=== PATIENT | female | born 1955 | race Two or more races ===

== ENCOUNTER → 2016-11-11 | Outpatient (CLI) | payer MEDICARE, OTHER ==
[2015-11-22 12:40] VITALS: BP 115/65
[~2016-11-11] MED LIST: CELE100C PO; CHOL500016 PO; HYDR-2758 PO; HYDR-971 PO; LEVO25TA4 PO; OXYC-323 PO
--- NOTE | 2016-11-11 11:54 | RAD ---
DATE: 11/11/2016 EXAM: DIGITAL DIAGNOSTIC BILATERAL HISTORY: Diagnostic mammogram for evaluation of lumpy breasts. History of prior cyst aspiration in the left breast. COMPARISON: Left breast ultrasound 11/22/2015, mammogram 10/20/2014, 07/03/2014 This study was interpreted with the benefit of Computerized Aided Detection (CAD). The breast parenchyma is primarily fatty replaced. Breast parenchyma level density A. FINDINGS: Bilateral CC and MLO views were performed with an additional spot CC view. No suspicious microcalcifications, masses or areas of architectural distortion are identified. Patient had prior cyst aspiration, which is not seen on current mammogram. IMPRESSION: Normal bilateral mammogram. BI-RADS CATEGORY: 1 NEGATIVE RECOMMENDED FOLLOW-UP: 12M 12 MONTH FOLLOW-UP PQRS compliance statement: Patient information was entered into a reminder system with a target due date 11/11/2017 for the next mammogram. Mammography is a sensitive method for finding small breast cancers, but it does not detect them all and is not a substitute for careful clinical examination. A negative mammogram does not negate a clinically suspicious finding and should not result in delay in biopsying a clinically suspicious abnormality. "Our facility is accredited by the [employer]ammography [employer]."
== END | disposition home or self-care (01) ==
LOC: MAMMO 09:27
PROVIDERS: ATTEND Family Medicine
DX: N63 Unspecified lump in breast (principal)
CPT/HCPCS: G0204; 77066

== ENCOUNTER 2017-04-02 08:59 | Emergency (ER) | payer MEDICARE, OTHER ==
[2017-04-02] MEDS ORDERED: BENZONATATE 100 MG CAPSULE. PO ONE (09:15)
[2017-04-02] MEDS ORDERED: methylPREDNISolone SOD SUCC PF 125 MG/2 ML VIAL. IV ONE (09:15)
[2017-04-02] MEDS ORDERED: IPRATRPIUM/ALBUTEROL 0.5/2.5MG 3 ML NEBU. NEB ONE (09:15)
--- NOTE | 2017-04-02 09:23 | PHYS DOC ---
Past Medical History Past Medical History: No Pertinent History Past Surgical History: No Surgical History Alcohol Use: Rarely Drug Use: None Adult General Chief Complaint Chief Complaint: MULTIPLE COMPLAINTS HPI HPI Patient is a 61 year old female with no significant medical history who presents today with a productive cough and nasal congestion for 2 weeks. Patient is also complaining of subjective fevers. Review of Systems Review of Systems Constitutional: Denies fever or chills [] Eyes: Denies change in visual acuity, redness, or eye pain [] HENT: Reports nasal congestion, denies sore throat [] Respiratory: Reports productive cough, denies shortness of breath [] Cardiovascular: No additional information not addressed in HPI [] GI: Denies abdominal pain, nausea, vomiting, bloody stools or diarrhea [] : Denies dysuria or hematuria [] Musculoskeletal: Denies back pain or joint pain [] Integument: Denies rash or skin lesions [] Neurologic: Denies headache, focal weakness or sensory changes [] All other systems were reviewed and found to be within normal limits, except as documented in this note. Current Medications Current Medications Current Medications Medications (Trade) Dose Ordered Sig/Morteza Start Time Stop Time Status Last Admin Dose Admin Albuterol/ Ipratropium (Duoneb) 3 ml 1X ONCE 04/02/17 09:15 04/02/17 09:22 DC 04/02/17 09:39 3 ML Benzonatate (Tessalon Perle) 100 mg 1X ONCE 04/02/17 09:15 04/02/17 09:22 DC 04/02/17 09:34 100 MG Methylprednisolone Sodium Succinate (SOLU-Medrol 125MG VIAL) 125 mg 1X ONCE 04/02/17 09:15 04/02/17 09:22 DC 04/02/17 09:34 125 MG Allergies Allergies Allergies Coded Allergies Type Severity Reaction Last Updated Verified No Known Drug Allergies 11/22/15 No Physical Exam Physical Exam Constitutional: Well developed, well nourished, no acute distress, non-toxic appearance. [] HENT: Normocephalic, atraumatic, bilateral external ears normal, oropharynx moist, no oral exudates, she sounds congested nasally. Eyes: PERRLA, EOMI, conjunctiva normal, no discharge. [] Neck: Normal range of motion, no tenderness, supple, no stridor. [] Cardiovascular:Heart rate regular rhythm, no murmur [] Lungs & Thorax: Patient is wheezing throughout her lung bases, she is actively coughing in the ED. Abdomen: Bowel sounds normal, soft, no tenderness, no masses, no pulsatile masses. [] Skin: Warm, dry, no erythema, no rash. [] Back: No tenderness, no CVA tenderness. [] Extremities: No tenderness, no cyanosis, no clubbing, ROM intact, no edema. [] Neurologic: Alert and oriented X 3, normal motor function, normal sensory function, no focal deficits noted. [] Psychologic: Affect normal, judgement normal, mood normal. [] Current Patient Data Vital Signs Vital Signs Date Time Temp Pulse Resp B/P (MAP) Pulse Ox O2 Delivery O2 Flow Rate FiO2 04/02/17 10:15 68 22 151/77 (101) 96 Nasal Cannula 2.0 04/02/17 09:13 98.7 98.7 Lab Values Laboratory Tests Test 04/02/17 09:14 White Blood Count 5.0 x10^3/uL (4.0-11.0) Red Blood Count 4.66 x10^6/uL (3.50-5.40) Hemoglobin 15.1 g/dL (12.0-15.5) Hematocrit 44.5 % (36.0-47.0) Mean Corpuscular Volume 96 fL (79-100) Mean Corpuscular Hemoglobin 32 pg (25-35) Mean Corpuscular Hemoglobin Concent 34 g/dL (31-37) Red Cell Distribution Width 12.7 % (11.5-14.5) Platelet Count 200 x10^3/uL (140-400) Neutrophils (%) (Auto) 47 % (31-73) Lymphocytes (%) (Auto) 38 % (24-48) Monocytes (%) (Auto) 12 % (0-9) H Eosinophils (%) (Auto) 3 % (0-3) Basophils (%) (Auto) 0 % (0-3) Neutrophils # (Auto) 2.4 x10^3uL (1.8-7.7) Lymphocytes # (Auto) 1.9 x10^3/uL (1.0-4.8) Monocytes # (Auto) 0.6 x10^3/uL (0.0-1.1) Eosinophils # (Auto) 0.1 x10^3/uL (0.0-0.7) Basophils # (Auto) 0.0 x10^3/uL (0.0-0.2) Prothrombin Time 12.0 SEC (11.7-14.0) Prothrombin Time INR 0.9 (0.8-1.1) Sodium Level 139 mmol/L (136-145) Potassium Level 3.7 mmol/L (3.5-5.1) Chloride Level 105 mmol/L (98-107) Carbon Dioxide Level 25 mmol/L (21-32) Anion Gap 9 (6-14) Blood Urea Nitrogen 12 mg/dL (7-20) Creatinine 0.6 mg/dL (0.6-1.0) Estimated GFR (Cockcroft-Gault) 101.6 Glucose Level 109 mg/dL (70-99) H Calcium Level 9.0 mg/dL (8.5-10.1) Magnesium Level 2.1 mg/dL (1.8-2.4) Creatine Kinase 78 U/L (26-192) Creatine Kinase MB (Mass) < 0.5 ng/mL (0.0-3.6) Creatine Kinase MB Relative Index 0.6 % (0-4) Troponin I Quantitative < 0.017 ng/mL (0.000-0.055) YF-Jvr-T-Type Natriuretic Peptide 43 pg/mL (0-124) Thyroid Stimulating Hormone (TSH) 4.872 uIU/mL (0.358-3.74) H Laboratory Tests 04/02/17 09:14 Laboratory Tests 04/02/17 09:14 EKG EKG 09:[address] Guerra sinus rhythm, HR 77 no STEMI[] Radiology/Procedures Radiology/Procedures []PROCEDURE: PORTABLE CHEST 1V Portable chest, 04/02/2017: History: Cough The heart appears to be within normal limits in size. The pulmonary vascularity is normal. A density at the cardiac apex is probably due to a prominent epicardial fat pad. Scarring or mild atelectasis are less likely possibilities. The right chest is clear. No pleural fluid is seen. IMPRESSION: No acute cardiopulmonary abnormality is detected. DICTATED and SIGNED BY: SYLVIE VALDES MD DATE: 04/02/17931 CC: RUBI PEÑA MD; ROSHAN LASSITER APRN ~ Course & Med Decision Making Course & Med Decision Making Pertinent Labs and Imaging studies reviewed. (See chart for details) Patient is in the ED with a productive cough and nasal congestion for pain 2 weeks. Chest x-ray interpreted by radiologist is negative for any acute findings. Lab work is negative for any acute findings. Her TSH is elevated at 4.872her heart rate is normal, she was instructed to follow-up with her PCP for this. She was actively coughing in the ED on arrival. She was given a DuoNeb treatment as well as Solu-Medrol. Her coughing has tremendously slowed down and she feels better. She has good follow-up. She'll be discharged with albuterol inhaler, prednisone, Tessalon Perles, Augmentin, and instructed to follow-up with her PCP in the course of this week or next week. Dragon Disclaimer Dragon Disclaimer This electronic medical record was generated, in whole or in part, using a voice recognition dictation system. Departure Departure Impression: Primary Impression: Acute bronchitis Additional Impressions: Acute sinusitis Hypothyroidism Disposition: 01 HOME, SELF-CARE Condition: STABLE Referrals: RUBI PEÑA MD (PCP) follow up next week Patient Instructions: Acute Bronchitis, Sinusitis, [id number] Additional Instructions: You were seen with symptoms consistent of bronchitis and sinus infection. Take the prescribed medications as ordered. Follow-up with your primary care doctor in the course of next week. Come back to the ED at any point symptoms worsen. Your TSH was 4.[address] please follow up with Dr. Casiano for this. Scripts Benzonatate (TESSALON PERLE) 100 Mg Capsule 1 CAP PO TID, #30 CAP Prov: ROSHAN LASSITER APRN 04/02/17 Promethazine HCl/Codeine (Prometh-Codein 6.25-10 mg/5 ml) 5 Ml Syrup 5 ML PO Q6HRS, #80 ML Prov: ROSHAN LASSITER APRN 04/02/17 Albuterol Sulfate (PROVENTIL HFA INHALER) 6.7 Gm Hfa.aer.ad 1 PUFF IH PRN Q4HRS Y for FOR ASTHMA, #1 INHALER 0 Refills Prov: ROSHAN LASSITER APRN 04/02/17 Prednisone (PREDNISONE) 50 Mg Tablet 1 TAB PO DAILY, #5 TAB Prov: ROSHAN LASSITER ASSOCIATE THEATRE PROFESSOR 04/02/17 Amoxicillin/Potassium Clav (AUGMENTIN 875-125 TABLET) 1 Each Tablet 1 TAB PO BID, #20 TAB Prov: ROSHAN LASSITER ASSOCIATE THEATRE PROFESSOR 04/02/17 Problem Qualifiers Primary Impression: Acute bronchitis Bronchitis organism: unspecified organism Qualified Codes: J20.9 - Acute bronchitis, unspecified Additional Impressions: Acute sinusitis Sinusitis location: maxillary Recurrence: non-recurrent Qualified Codes: J01.00 - Acute maxillary sinusitis, unspecified Hypothyroidism Hypothyroidism type: unspecified Qualified Codes: E03.9 - Hypothyroidism, unspecified ROSHAN LASSITER ASSOCIATE THEATRE PROFESSOR Apr 02, 2017 09:23
--- NOTE | 2017-04-02 09:25 | EKG ---
[facility] [address] [place] [address] Test Date: 2017-04-02 Test Time: 09:06:19 Pat Name: SARAHI GUEVARA Department: Room: Gender: F Senior User Experience Architect: : 1955 Requested By: ROSHAN LASSITER Order Number: [id number] Reading MD: Measurements Intervals [place] Rate: 77 P: 48 VA: 144 QRS: 36 QRSD: 70 T: 28 QT: 364 QTc: 414 Interpretive Statements SINUS RHYTHM QRS(T) CONTOUR ABNORMALITY CONSIDER ANTEROSEPTAL MYOCARDIAL DAMAGE POSSIBLY ABNORMAL ECG RI6.01 No previous ECG available for comparison
[2017-04-02 09:34] LABS: BASO % 0 % (0-3); EOS % 3 % (0-3); HEMATOCRIT 44.5 % (36.0-47.0); HEMOGLOBIN 15.1 g/dL (12.0-15.5); LYMPH # 1.9 x10^3/uL (1.0-4.8); LYMPH % 38 % (24-48); MEAN CORPUSCULAR HEMOGLOBIN 32 pg (25-35); MEAN CORPUSCULAR HGB CONC 34 g/dL (31-37); MEAN CORPUSCULAR VOLUME 96 fL (79-100); MONO % 12 % (0-9); NEUT % 47 % (31-73); PLATELET COUNT 200 x10^3/uL (140-400); RED BLOOD COUNT 4.66 x10^6/uL (3.50-5.40); RED CELL DISTRIBUTION WIDTH 12.7 % (11.5-14.5)
--- NOTE | 2017-04-02 09:38 | RAD ---
Portable chest, 04/02/2017: History: Cough The heart appears to be within normal limits in size. The pulmonary vascularity is normal. A density at the cardiac apex is probably due to a prominent epicardial fat pad. Scarring or mild atelectasis are less likely possibilities. The right chest is clear. No pleural fluid is seen. IMPRESSION: No acute cardiopulmonary abnormality is detected.
[2017-04-02 09:39] LABS: INR 0.9 (0.8-1.1)
[2017-04-02 09:42] LABS: CREATININE 0.6 mg/dL (0.6-1.0); GFR 101.6; MAGNESIUM 2.1 mg/dL (1.8-2.4); POTASSIUM 3.7 mmol/L (3.5-5.1)
[2017-04-02 10:00] LABS: CKMB MASS < 0.5 ng/mL (0.0-3.6); CREATINE KINASE 78 U/L (26-192)
[2017-04-02] MEDS ORDERED: BENZ100C PO (10:50)
[2017-04-02] MEDS ORDERED: PROVENTIL HFA6.7 GM IH (10:50)
[2017-04-02] MEDS ORDERED: PRED50TA PO (10:50)
[2017-04-02] MEDS ORDERED: AMOX1TAB61 PO (10:50)
[2017-04-02] MEDS ORDERED: PROM5SYR2 PO (10:50)
[2017-04-02 10:53] VITALS: BP 118/64
== END 2017-04-02 11:11 | disposition home or self-care (01) ==
LOC: ER 08:59
DX: J20.9 Acute bronchitis, unspecified (principal); J01.00 Acute maxillary sinusitis, unspecified; E03.9 Hypothyroidism, unspecified
CPT/HCPCS: 36415; 71010; 80048; 82553; 83735; 83880; 84443; 84484; 85025; 85610; 93005; 94250; 94640; 96374; 99285; J2930; J7620

== ENCOUNTER 2017-05-06 03:32 | Emergency (ER) | payer MEDICARE, OTHER ==
[2017-05-06 03:54] LABS: BILIRUBIN,URINE NEGATIVE (NEG); CLARITY,URINE CLOUDY; COLOR,URINE YELLOW; GLUCOSE,URINE NEGATIVE (NEG); NITRITE,URINE NEGATIVE (NEG); PH,URINE 8.5; PROTEIN,URINE 30 mg/dL (NEG-TRACE)
[2017-05-06 04:03] LABS: BACTERIA,URINE FEW /HPF (0-FEW); RBC,URINE TNTC /HPF (0-2); SQUAMOUS EPITHELIAL CELL,UR FEW /LPF; WBC,URINE TNTC /HPF (0-4)
[2017-05-06] MEDS: PHENAZOPYRIDINE 200 MG TABLET. PO (04:26)
[2017-05-06] MEDS: HYDROcodone/APAP 5/325MG 1 TAB TABLET PO (04:26)
== END 2017-05-06 04:36 | disposition home or self-care (01) ==
LOC: ER 03:32
DX: N39.0 Urinary tract infection, site not specified (principal); E03.9 Hypothyroidism, unspecified; Z90.49 Acquired absence of other specified parts of digestive tract
CPT/HCPCS: 81001; 87086; 99284

== ENCOUNTER → 2017-12-29 | Outpatient (CLI) | payer OTHER ==
[2017-05-06 04:31] VITALS: BP 154/68
[~2017-12-29] MED LIST changes: +ACET1TAB33 PO; +AMOX1TAB61 PO; +BENZ100C PO; +NITR100C62 PO; +PHEN100T82 PO; +PRED50TA PO; +PROM5SYR2 PO; +PROVENTIL HFA6.7 GM IH
--- NOTE | 2017-12-29 13:45 | RAD ---
DATE: 12/29/2017 EXAM: DIGITAL SCREEN BILAT W/CAD HISTORY: Routine screening COMPARISON: 11/11/2016 This study was interpreted with the benefit of Computerized Aided Detection (CAD). The breast parenchyma is primarily fatty replaced. Breast parenchyma level density A. FINDINGS: A small nodular opacity is now noted projected over the medial aspect of the left breast on the cc view. It was not evident on the previous study. This may correspond to a small density seen inferiorly on the oblique view. A benign-appearing stable intramammary lymph node is present laterally on the right. No other new or enlarging breast densities are seen. Scattered benign type calcifications are present. No suspicious microcalcifications have developed. IMPRESSION: Possible developing nodule medially in the left breast. Diagnostic mammograms to include spot compression and possibly tomosynthesis imaging is suggested. If a suspicious density persists, left breast ultrasound would be indicated. BI-RADS CATEGORY: 0 INCOMPLETE: NEEDS ADDITIONAL IMAGING EVALUATION AND/OR PRIOR MAMMOGRAMS FOR COMPARISON. RECOMMENDED FOLLOW-UP: ADD ADDITIONAL IMAGING PQRS compliance statement: Patient information was entered into a reminder system with a target due date for the next mammogram. Mammography is a sensitive method for finding small breast cancers, but it does not detect them all and is not a substitute for careful clinical examination. A negative mammogram does not negate a clinically suspicious finding and should not result in delay in biopsying a clinically suspicious abnormality. "Our facility is accredited by the [employer] Mammography [employer]."
== END | disposition home or self-care (01) ==
LOC: MAMMO 08:12
PROVIDERS: ATTEND Internal Medicine
DX: Z12.31 Encounter for screening mammogram for malignant neoplasm of breast (principal); E03.9 Hypothyroidism, unspecified; Z87.891 Personal history of nicotine dependence; Z90.49 Acquired absence of other specified parts of digestive tract
CPT/HCPCS: 77067

== ENCOUNTER → 2018-01-11 | Outpatient (CLI) | payer OTHER ==
[2017-05-06 04:31] VITALS: BP 154/68
--- NOTE | 2018-01-11 10:26 | RAD ---
DATE: 01/11/2018 EXAM: MAMMO JEFFREY LUPEG LT, BREAST LEFT HISTORY: Suspicious screening study COMPARISON: 12/29/2017 This study was interpreted with the benefit of Computerized Aided Detection (CAD). Breast Density: FATTY The breast parenchyma is primarily fatty replaced. Breast parenchyma level density A. FINDINGS: Additional views of the left breast confirm the presence of a small nodule in the anteromedial aspect of the left breast at approximately the 9:00 location approximates 6-7 cm from the nipple as best visualized on CC jeffrey image #44. It measures approximate 4.8 mm. This appears new when compared to older studies. There is a separate tiny smooth nodule located in the medial retroareolar region which appears to be unchanged since previous studies. Left breast ultrasound, 01/11/2018: A targeted ultrasound exam of the left breast was performed at the 9:00 location. Approximate 6 cm in the nipple there is a vague slightly hypoechoic areas seen measuring approximately 4 mm. No significant posterior acoustic enhancement or shadowing is seen. It does not have the appearance of a cyst. It is difficult to consistently reproduce sonographically. This probably corresponds to the nodule seen on the mammograms, however, the nodule is much better demonstrated mammographically. IMPRESSION: Suspicious left breast nodule. Stereotactic biopsy is suggested for further evaluation. Note: The findings were discussed with the patient at the time of the exam and she understands the recommendation for biopsy. She will follow-up with the ordering physician. BI-RADS CATEGORY: 4 SUSPICIOUS ABNORMALITY- BIOPSY SHOULD BE CONSIDERED RECOMMENDED FOLLOW-UP: BIO BIOPSY RECOMMENDED PQRS compliance statement: Patient information was entered into a reminder system with a target due date for the next mammogram. Mammography is a sensitive method for finding small breast cancers, but it does not detect them all and is not a substitute for careful clinical examination. A negative mammogram does not negate a clinically suspicious finding and should not result in delay in biopsying a clinically suspicious abnormality. "Our facility is accredited by the [employer] Mammography Program."
== END | disposition home or self-care (01) ==
LOC: MAMMO 09:28
PROVIDERS: ATTEND Internal Medicine
DX: R92.8 Other abnormal and inconclusive findings on diagnostic imaging of breast (principal); E03.9 Hypothyroidism, unspecified; Z87.891 Personal history of nicotine dependence; Z90.49 Acquired absence of other specified parts of digestive tract
CPT/HCPCS: 76641; 77065; G0279; 77061

== ENCOUNTER → 2018-01-13 | Outpatient (CLI) | payer OTHER ==
[2017-05-06 04:31] VITALS: BP 154/68
[~2018-01-13] MED LIST changes: +LIDOCAINE 2%/EPI 1:100,000 20 ML VIAL. IJ ONE; +LIDOCAINE WITH 8.4% SOD BICARB 3 ML DISP.SYRIN. INJ ONE
--- NOTE | 2018-01-15 16:09 | PATHOLOGY ---
[facility] Accession Number: [id number] . 01 Material submitted: . LT BREAST NODULE . 01 Clinical history: . Left breast nodule. . 02 Diagnosis: Breast nodule, left, core needle biopsy: - Fat necrosis with associated acute and chronic inflammation. - Scant ductal epithelium with mild chronic inflammation. (Please see comment) . (SKM:vjm;01/14/2018) [facility]/01/14/2018 . 02 Comment: This case has also been reviewed by Dr. Cinthya Restrepo, who agrees with the diagnosis. . (SKM:vjm;01/14/2018) . 02 Electronically signed: . Frederick Mckeon MD, Pathologist NPI- [id number] . 01 Gross description: . The specimen is received in formalin, labeled "Paul, Kayleen and left breast nodule", are multiple cores of fibroadipose tissue and its fragments measuring 2.7 x 2.5 x 0.7 cm in aggregate. The specimen is entirely submitted in A1-A3. . Specimen excised at: 1010 on 01/13/18, placed in formalin at: 1020 on 01/13/18, formalin exposure: 12 hours and 20 minutes (SWS; 01/13/2018) SHS/SHS . 02 Pathologist provided ICD-10: N61.0, N64.1 . 02 CPT . 323285 Specimen Comment: A courtesy copy of this report has been sent to Specimen Comment: [phone], . Specimen Comment: Report sent to and Performed at: [address], [place] [id number] MD Lion Gutierrez MD Phone: [phone] Performed at: [address] [id number] MD Charles Cordero MD Phone: [phone]
--- NOTE | 2018-01-20 09:09 | RAD ---
Stereotactic left breast biopsy, 01/13/2018: History: Suspicious breast nodule Previous studies demonstrated a suspicious nodule at the 9-10:00 location in the left breast. Under local anesthesia, aseptic conditions and stereotactic guidance the FrienditePlus vacuum-assisted biopsy instrument was passed into the margin of this nodule via a superior approach. Multiple 9 gauge vacuum-assisted core samples were obtained. A biopsy marker was then deposited at the biopsy site. The biopsy instrument was removed and hemostasis obtained. Two-view postprocedural digital mammograms were obtained on a separate mammographic unit to document position of the biopsy marker. The biopsy marker and a small associated postbiopsy hematoma lie at the level where the nodule was previously located. That nodule is no longer visible. The patient tolerated the procedure well and left the department in good condition. Note: The subsequent pathology report indicated the presence of fat necrosis without malignancy. Mammographic surveillance consisting of follow-up left mammography in 6 months and bilateral mammography at one year is suggested BI-RADS 3-probably benign finding
== END | disposition home or self-care (01) ==
LOC: MAMMO 08:57
PROVIDERS: ATTEND Internal Medicine
DX: N61.0 Mastitis without abscess (principal); N64.1 Fat necrosis of breast
CPT/HCPCS: 19081; 77065; 88305; C1713; J3490; 19085; 77022

== ENCOUNTER 2019-02-11 15:07 | Emergency (ER) | payer MEDICARE, OTHER ==
[~2019-02-11] VITALS: Ht 152.4 cm; Wt 98.0 kg
[~2019-02-11 15:07] MED LIST changes: +ALBU2.5V8 IH; -HYDR-2758 PO; +HYDR-2761 PO; +HYDR-3164 PO; -HYDR-971 PO; -LIDOCAINE 2%/EPI 1:100,000 20 ML VIAL. IJ ONE; -LIDOCAINE WITH 8.4% SOD BICARB 3 ML DISP.SYRIN. INJ ONE; -OXYC-323 PO; +OXYC1TAB15 PO; -PROVENTIL HFA6.7 GM IH
[2019-02-11 15:47] LABS: BILIRUBIN,URINE NEGATIVE (NEG); CLARITY,URINE CLEAR; COLOR,URINE YELLOW; NITRITE,URINE NEGATIVE (NEG); PROTEIN,URINE NEGATIVE (NEG-TRACE)
--- NOTE | 2019-02-11 15:53 | PHYS DOC ---
Past Medical History Past Medical History: Arthritis, Hypothyroid (MALAIKA PENA APRN) Past Surgical History: Cholecystectomy (MALAIKA PENA APRN) Alcohol Use: None Drug Use: None (MALAIKA PENA APRN) Attending Signature I have participated in the care of this patient and I have reviewed and agree with all pertinent clinical information above including history, exam, and recommendations. (MICHELLE MORELAND MD) Adult General Chief Complaint Chief Complaint: PAIN ON URINATION HPI HPI Patient is a 63 year old female who presents with left that began having burning with urination and urinary frequency. Patient denies any hematuria, abdominal pain, nausea, vomiting, fever. Patient currently says he has no pain at this time. Patient also complains of a two-week cough that is nonproductive with some nasal congestion but no chest pain or shortness of air. Patient states she's been taking [place] cold medication. (MALAIKA PENA APRN) Review of Systems Review of Systems HENT: nasal congestion or denies sore throat [] Respiratory: cough or denies shortness of breath [] : dysuria or denies hematuria [] All other systems were reviewed and found to be within normal limits, except as documented in this note. (MALAIKA PENA APRN) Allergies Allergies Allergies Coded Allergies Type Severity Reaction Last Updated Verified No Known Drug Allergies 11/22/15 No (MICHELLE MORELAND MD) Physical Exam Physical Exam Constitutional: Well developed, well nourished, no acute distress, non-toxic appearance. [] HENT: Normocephalic, atraumatic, bilateral external ears normal, oropharynx moist, no oral exudates, nose normal. [] Eyes: PERRLA, EOMI, conjunctiva normal, no discharge. [] Neck: Normal range of motion, no tenderness, supple, no stridor. [] Cardiovascular:Heart rate regular rhythm, no murmur [] Lungs & Thorax: Bilateral breath sounds clear to auscultation [] Abdomen: Bowel sounds normal, soft, no tenderness, no masses, no pulsatile masses. [] Skin: Warm, dry, no erythema, no rash. [] Back: No tenderness, no CVA tenderness. [] Neurologic: Alert and oriented X 3, normal motor function, normal sensory function, no focal deficits noted. [] Psychologic: Affect normal, judgement normal, mood normal. [] Normal Physical Exam (MALAIKA PENA APRN) Current Patient Data Vital Signs Vital Signs Date Time Temp Pulse Resp B/P (MAP) Pulse Ox O2 Delivery O2 Flow Rate FiO2 02/11/19 15:54 97.9 88 16 143/87 (105) 94 Room Air 97.9 (MICHELLE MORELAND MD) Lab Values Laboratory Tests Test 02/11/19 15:42 Urine Collection Type Unknown Urine Color Yellow Urine Clarity Clear Urine pH 6.0 Urine Specific [place] 1.010 Urine Protein Negative mg/dL (NEG-TRACE) Urine Glucose (UA) Negative mg/dL (NEG) Urine Ketones (Stick) Negative mg/dL (NEG) Urine Blood Moderate (NEG) Urine Nitrite Negative (NEG) Urine Bilirubin Negative (NEG) Urine Urobilinogen Dipstick 1.0 mg/dL (0.2 mg/dL) Urine Leukocyte Esterase Large (NEG) Urine RBC >40 /HPF (0-2) Urine WBC Tntc /HPF (0-4) Urine Squamous Epithelial Cells Mod /LPF Urine Bacteria Moderate /HPF (0-FEW) (MIHCELLE MORELAND MD) Lab Values Laboratory Tests Test 02/11/19 15:42 Urine Collection Type Unknown Urine Color Yellow Urine Clarity Clear Urine pH 6.0 Urine Specific [place] 1.010 Urine Protein Negative mg/dL (NEG-TRACE) Urine Glucose (UA) Negative mg/dL (NEG) Urine Ketones (Stick) Negative mg/dL (NEG) Urine Blood Moderate (NEG) Urine Nitrite Negative (NEG) Urine Bilirubin Negative (NEG) Urine Urobilinogen Dipstick 1.0 mg/dL (0.2 mg/dL) Urine Leukocyte Esterase Large (NEG) Urine RBC >40 /HPF (0-2) Urine WBC Tntc /HPF (0-4) Urine Squamous Epithelial Cells Mod /LPF Urine Bacteria Moderate /HPF (0-FEW) (MALAIKA PENA APRN) EKG EKG [] (MALAIKA PENA APRN) Radiology/Procedures Radiology/Procedures [] (MALAIKA PENA APRN) Course & Med Decision Making Course & Med Decision Making Patient is a 63 year old female who presents with left that began having burning with urination and urinary frequency. Patient denies any hematuria, abdominal pain, nausea, vomiting, fever. Patient currently says he has no pain at this time. Patient also complains of a two-week cough that is nonproductive with some nasal congestion but denies chest pain or shortness of air. Patient states she's been taking [place] cold medication. Lungs are clear to auscultation in all lobes. Abdomen is soft and nontender. No CVA tenderness. (MALAKIA PENA APRN) Dragon Disclaimer Dragon Disclaimer This electronic medical record was generated, in whole or in part, using a voice recognition dictation system. (MALAIKA PENA APRN) Departure Departure Impression: Primary Impression: Urinary tract infection Additional Impression: Cough Disposition: 01 HOME, SELF-CARE Condition: STABLE Referrals: YRAED BURRELL MD (PCP) Patient Instructions: Cough, Adult, Urinary Tract Infection Additional Instructions: Follow up with primary care provider. Drink plenty of fluids. Take medications as prescribed. Scripts Cephalexin (KEFLEX) 500 Mg Capsule 1 CAP PO BID for 7 Days, #14 CAP 0 Refills Prov: MALAIKA PENA APRN 02/11/19 Methylprednisolone (MEDROL) 4 Mg Tab.ds.pk 1 PKG PO UD, #1 PKG Prov: MALAIKA PENA APRN 02/11/19 Problem Qualifiers Primary Impression: Urinary tract infection Urinary tract infection type: site unspecified Hematuria presence: with hematuria Qualified Codes: N39.0 - Urinary tract infection, site not specified; R31.9 - Hematuria, unspecified MALAIKA PENA APRN Feb 11, 2019 15:53 MICHELLE MORELAND MD Feb 12, 2019 09:35
[2019-02-11 15:54] VITALS: BP 143/87
[2019-02-11 15:54] LABS: SQUAMOUS EPITHELIAL CELL,UR MOD /LPF
[2019-02-11 15:55] LABS: BACTERIA,URINE MODERATE /HPF (0-FEW); RBC,URINE >40 /HPF (0-2); WBC,URINE TNTC /HPF (0-4)
[2019-02-11] MEDS ORDERED: CEPH-264 PO (16:05)
[2019-02-11] MEDS ORDERED: METH4TAB2 PO (16:05)
== END 2019-02-11 16:35 | disposition home or self-care (01) ==
LOC: ER 15:07
DX: N39.0 Urinary tract infection, site not specified (principal); R09.81 Nasal congestion; M19.90 Unspecified osteoarthritis, unspecified site; E03.9 Hypothyroidism, unspecified; Z90.49 Acquired absence of other specified parts of digestive tract
CPT/HCPCS: 81001; 87086; 87186; 99284

== ENCOUNTER → 2019-06-29 | Day surgery (SDC) | payer MEDICARE, OTHER ==
[~2019-06-29] MED LIST changes: -ALBU2.5V8 IH; +CEPH-264 PO; +HYDROmorphone 2 MG/ML VIAL IV PRN; +IV RINGERS,LACTATED 1000ML 1,000 ML IV SCH; +METH4TAB2 PO; +MORPHINE SULFATE 2 MG/ML VIAL. IV PRN; +ONDANSETRON PF 4 MG/2 ML VIAL. IV PRN; +PANT40TA77 PO; +PROCHLORPERAZINE 10 MG/2 ML VIAL. IV PRN; +PROPOFOL 20 ML IV ONE; +PROVENTIL HFA6.7 GM IH; +fentaNYL PF VIAL 100 MCG/2 ML VIAL IV PRN
[2019-06-29 09:35] VITALS: BP 116/65
--- NOTE | 2019-06-29 10:27 | CONS ---
DATE OF CONSULTATION: 06/29/2019 GASTROINTESTINAL CONSULTATION REFERRING PHYSICIAN: Willam Campbell M.D. REASON FOR CONSULTATION: Colorectal screening. HISTORY OF PRESENT ILLNESS: A 63-year-old female with past medical history significant for hypothyroidism, gastroesophageal reflux disease, is seen for screening colon exam. Bowel habits are regular without diarrhea or constipation. There has been no melena and/or hematochezia. No family history of colon cancer is noted per discussion with the daughter. There has been no change in bowel habits. Weight and appetite are stable and she is otherwise without additional complaints. PAST MEDICAL HISTORY: Hypothyroidism, gastroesophageal reflux disease. ALLERGIES: None. MEDICATIONS: Include vitamin D, levothyroxine and pantoprazole. SOCIAL HISTORY: Nonsmoker, nondrinker. FAMILY HISTORY: Noncontributory. REVIEW OF SYSTEMS: Per records. PHYSICAL EXAMINATION: GENERAL: Reveals a well-nourished, well-developed female. VITAL SIGNS: Temperature is 97.5, pulse 90, respirations 20. LUNGS: Clear anteriorly. CARDIOVASCULAR: S1, S2 without S3, S4 or appreciable murmur. ABDOMEN: With a soft abdomen, normal bowel sounds, without appreciable hepatosplenomegaly with right upper quadrant cholecystectomy incision. EXTREMITIES: Reveals no cyanosis, clubbing or edema. IMPRESSION: Colorectal screening is warranted at this time. Risks and benefits have been discussed with the daughter including risk of hemorrhage and perforation and is willing to proceed. CARLIE BARRIOS MD DR: BOOGIE/lester JOB#: [id number] / [id number]
== END ==
LOC: ENDOS 07:40
PROVIDERS: ATTEND Internal Medicine Gastroenterology
DX: Z12.11 Encounter for screening for malignant neoplasm of colon (principal); K57.30 Diverticulosis of large intestine without perforation or abscess without bleeding; K64.0 First degree hemorrhoids; E03.9 Hypothyroidism, unspecified; K21.9 Gastro-esophageal reflux disease without esophagitis
CPT/HCPCS: G0121; J2704; 45378

== ENCOUNTER → 2019-12-08 | Outpatient (CLI) | payer MEDICARE, OTHER ==
[2019-06-29 09:35] VITALS: BP 116/65
[~2019-12-08] MED LIST changes: -HYDROmorphone 2 MG/ML VIAL IV PRN; -IV RINGERS,LACTATED 1000ML 1,000 ML IV SCH; -MORPHINE SULFATE 2 MG/ML VIAL. IV PRN; -ONDANSETRON PF 4 MG/2 ML VIAL. IV PRN; -PROCHLORPERAZINE 10 MG/2 ML VIAL. IV PRN; -PROPOFOL 20 ML IV ONE; -fentaNYL PF VIAL 100 MCG/2 ML VIAL IV PRN
--- NOTE | 2019-12-08 16:32 | RAD ---
DATE: 12/08/2019 2:21 PM EXAM: MAMMO JEFFREY SCREENING BILATERAL HISTORY: Screening COMPARISON: 11/11/2016 Bilateral CC and MLO views of the breasts were performed. Bilateral breast tomosynthesis was performed in CC and MLO projections. This study was interpreted with the benefit of Computerized Aided Detection (CAD). FINDINGS: Breast Density: FATTY The Breast Parenchyma is primarily fatty replaced. Breast parenchyma level density A. No suspicious masses, microcalcifications or architectural distortion is present to suggest malignancy in either breast. The visualized axillae are unremarkable. IMPRESSION: No mammographic evidence of malignancy. BI-RADS CATEGORY: 1 NEGATIVE RECOMMENDED FOLLOW-UP: 12M 12 MONTH FOLLOW-UP Annual screening mammography is recommended, unless clinically indicated sooner based on symptoms or change in physical exam. PQRS compliance statement: Patient information was entered into a reminder system with a target due date for the next mammogram. Mammography is a sensitive method for finding small breast cancers, but it does not detect them all and is not a substitute for careful clinical examination. A negative mammogram does not negate a clinically suspicious finding and should not result in delay in biopsying a clinically suspicious abnormality. "Our facility is accredited by the [employer] Mammography Program."
== END | disposition home or self-care (01) ==
LOC: MAMMO 14:02
PROVIDERS: ATTEND Family Medicine
DX: Z12.31 Encounter for screening mammogram for malignant neoplasm of breast (principal)
CPT/HCPCS: 77063; 77067

== ENCOUNTER → 2021-02-01 | Outpatient (CLI) | payer MEDICARE, OTHER ==
[2019-06-29 09:35] VITALS: BP 116/65
--- NOTE | 2021-02-04 08:10 | KCIC ---
Bilateral digital screening 2-D and 3-D (digital breast tomosynthesis) mammogram: Reason for examination: Routine screening. Comparison: Mammograms from 12/29/2017 and 12/08/2019. Interpretation was made with the benefit of CAD. FINDINGS: Breast density: Category B. There are scattered areas of fibroglandular density. No suspicious breast mass, malignant appearing calcifications, or architectural distortion is seen. IMPRESSION: No evidence of malignancy. Assessment: BI-RADS 1. Negative. Recommendation: Routine screening mammograms. The patient will receive a letter with the results in the mail. Patient information will be entered i nto the mammography reminder system with a target recall date for the next mammogram. A reminder marleny er will be generated. Electronically signed by: Elba Miller MD (02/04/2021 8:08 AM) [id number]
== END ==
LOC: KCIC MAMMO 12:25
PROVIDERS: ATTEND Family Medicine
DX: Z12.31 Encounter for screening mammogram for malignant neoplasm of breast (principal)
CPT/HCPCS: 77063; 77067

== ENCOUNTER 2021-07-04 16:49 | Emergency (ER) | payer MEDICARE, OTHER ==
[~2021-07-04] VITALS: Ht 160 cm; Wt 102.0 kg
--- NOTE | 2021-07-04 17:10 | PHYS DOC ---
Past Medical History Past Medical History: Arthritis, Hypothyroid Past Surgical History: Cholecystectomy Smoking Status: Never Smoker Alcohol Use: None Drug Use: None General Adult EDM: Chief Complaint: KNEE INJURY HPI: HPI: Patient is a 65 year old female who present to ER for evaluation of right knee pain. Patient says she was sleeping yesterday, she turned her knee the wrong way when she woke up, having pain ever since. The pain is worse now whenever she walks. Patient felt like THE TOP PART OF HER RIGHT KNEE RUBBING AGAINST THE BOTTOM PART. Patient has history of arthritis. Patient denies any chest pain, no trouble breathing. Patient denies any fever. Review of Systems: Review of Systems: Constitutional: Denies fever or chills. [] Eyes: Denies change in visual acuity. [] HENT: Denies nasal congestion or sore throat. [] Respiratory: Denies cough or shortness of breath. [] Cardiovascular: Denies chest pain or edema. [] GI: Denies abdominal pain, nausea, vomiting, bloody stools or diarrhea. [] : Denies dysuria. [] Musculoskeletal: Denies back pain , positive for right knee pain Integument: Denies rash. [] Neurologic: Denies headache, focal weakness or sensory changes. [] Endocrine: Denies polyuria or polydipsia. [] Lymphatic: Denies swollen glands. [] Psychiatric: Denies depression or anxiety. [] Heart Score: C/O Chest Pain: N/A Risk Factors: Risk Factors: DM, Current or recent (<one month) smoker, HTN, HLP, family history of CAD, obesity. Risk Scores: Score 0 - 3: 2.5% MACE over next 6 weeks - Discharge Home Score 4 - 6: 20.3% MACE over next 6 weeks - Admit for Clinical Observation Score 7 - 10: 72.7% MACE over next 6 weeks - Early Invasive Strategies Current Medications: Current Medications Medications (Trade) Dose Ordered Sig/Morteza Start Time Stop Time Status Last Admin Dose Admin Acetaminophen/ Hydrocodone Bitart (Lortab 10/325) 1 tab 1X ONCE 07/04/21 17:15 07/04/21 17:16 Ibuprofen (Motrin) 800 mg 1X ONCE 07/04/21 17:15 07/04/21 17:16 Prednisone (Prednisone) 60 mg 1X ONCE 07/04/21 17:15 07/04/21 17:16 Allergies: Allergies: Allergies Coded Allergies Type Severity Reaction Last Updated Verified No Known Drug Allergies 06/29/19 No Physical Exam: PE: Constitutional: Well developed, well nourished, no acute distress, non-toxic appearance. [] HENT: Normocephalic, atraumatic, bilateral external ears normal, oropharynx moist, no oral exudates, nose normal. [] Eyes: PERRLA, EOMI, conjunctiva normal, no discharge. [] Neck: Normal range of motion, no tenderness, supple, no stridor. [] Cardiovascular:Heart rate regular rhythm, no murmur [] Lungs & Thorax: Bilateral breath sounds clear to auscultation [] Abdomen: Bowel sounds normal, soft, no tenderness, no masses, no pulsatile masses. [] Skin: Warm, dry, no erythema, no rash. [] Back: No tenderness, no CVA tenderness. [] Extremities: Right knee is tender to palpation, with minimal swelling, right knee joint stable, no rash, no calf swelling, no evidence of DVT. Neurologic: Alert and oriented X 3, normal motor function, normal sensory function, no focal deficits noted. [] Psychologic: Affect normal, judgement normal, mood normal. [] Current Patient Data: Vital Signs: Vital Signs Date Time Temp Pulse Resp B/P (MAP) Pulse Ox O2 Delivery O2 Flow Rate FiO2 07/04/21 16:55 98.3 76 18 167/76 (106) 99 Room Air 98.3 EKG: EKG: [] Radiology/Procedures: Radiology/Procedures: X-rays of the right knee show arthritis. Patient will need to follow-up with orthopedics surgeon for outpatient reevaluation and treatment. Patient will will be discharged home with pain medication, steroid, anti-inflammatory medication Course & Med Decision Making: Course & Med Decision Making Pertinent Labs and Imaging studies reviewed. (See chart for details) [] Dragon Disclaimer: Dragon Disclaimer: This electronic medical record was generated, in whole or in part, using a voice recognition dictation system. Departure Departure Impression: Primary Impression: Degenerative joint disease of right knee Disposition: HOME / SELF CARE / HOMELESS Condition: IMPROVED Referrals: VITO JURADO MD (PCP) CHANDLER PEREZ Jr. DO Please call this orthopedic surgeon for outpatient evaluation and treatment next week. Patient Instructions: Arthritis, Degenerative-Brief Scripts Ibuprofen (IBUPROFEN) 600 Mg Tablet 600 MG PO PRN Q8HRS PRN for INFLAMMATION, #30 TAB Prov: MACRINA MAYEN DO 07/04/21 Hydrocodone/Acetaminophen (Hydrocodone-Acetamin 5-325 mg) 1 Each Tablet 1 EACH PO Q6HRS PRN for PAIN, #15 TAB Prov: MACRINA MAYEN DO 07/04/21 Prednisone (PREDNISONE) 20 Mg Tablet 1 TAB PO DAILY for 10 Days, #10 TAB Prov: MACRINA MAYEN DO 07/04/21 MACRINA MAYEN DO Jul 04, 2021 17:10
[2021-07-04] MEDS ORDERED: IBUPROFEN 400 MG TABLET. PO ONE (17:15)
[2021-07-04] MEDS ORDERED: HYDROcodone/APAP 10/325 1 TAB TABLET PO ONE (17:15)
[2021-07-04] MEDS ORDERED: predniSONE 20 MG TABLET PO ONE (17:15)
--- NOTE | 2021-07-04 17:53 | RAD ---
Three-view right knee dated 07/04/2021. No comparison available. CLINICAL INDICATION: Pain. FINDINGS: 3 views right knee show normal bony alignment. No displaced fracture. No periostitis or bone destruct ion. No acute osseous or articular abnormality. Moderate tricompartmental hypertrophic changes. No ap parent joint effusion or loose body. IMPRESSION: 1. No acute radiographic abnormality. 2. Moderate tricompartmental DJD Electronically signed by: Willam Sena MD (07/04/2021 5:51 PM) DEVANTE
[2021-07-04] MEDS ORDERED: IBUP-1007 PO (17:58)
[2021-07-04] MEDS ORDERED: HYDR-2759 PO (17:58)
[2021-07-04] MEDS ORDERED: PRED20TA PO (17:58)
[2021-07-04 18:20] VITALS: BP 158/70
== END 2021-07-04 18:25 | disposition home or self-care (01) ==
LOC: ER 16:49
DX: M17.11 Unilateral primary osteoarthritis, right knee (principal); E03.9 Hypothyroidism, unspecified; M25.561 Pain in right knee
CPT/HCPCS: 73562; 99283; J7512

== ENCOUNTER → 2021-08-12 | Outpatient (CLI) | payer MEDICARE, OTHER ==
[~2021-08-12] MED LIST changes: -ACET1TAB33 PO; +ACET1TAB56 PO; +HYDR-2759 PO; +IBUP-1007 PO; +PRED20TA PO
--- NOTE | 2021-08-12 11:27 | KCIC ---
EXAM: XR LUMBAR SPINE 2-3V 08/12/2021 8:40 AM CLINICAL INDICATION: Lower back pain, worse on right COMPARISON: None. TECHNIQUE: AP, lateral, and coned-down lateral views of lumbar spine FINDINGS: There are 5 nonrib-bearing lumbar vertebral bodies. No acute fracture. Alignment is normal . Mild to moderate disc space narrowing at L4-5 and L5-S1 and mild elsewhere. There are small anterio r anterior osteophytes at multiple levels. Prominent left lateral bridging osteophytes at L4-L5 and T 12-L1. There are cholecystectomy clips in the right upper quadrant. IMPRESSION: Degenerative disc disease, greatest at L4-L5 and L5-S1 where it is [id number] Electronically signed by: Jamilah Jean-Baptiste MD (08/12/2021 11:25 AM) [id number]
== END ==
LOC: KCIC 08:31
PROVIDERS: ATTEND Family Medicine
DX: M51.37 Other intervertebral disc degeneration, lumbosacral region (principal); M48.07 Spinal stenosis, lumbosacral region; M25.78 Osteophyte, vertebrae; Z90.49 Acquired absence of other specified parts of digestive tract
CPT/HCPCS: 72100